=== PATIENT | female | born 1995 | race Caucasian/White ===

== ENCOUNTER 2024-09-22 12:26 | Emergency (ER) | payer MEDICAID ==
[~2024-09-22] VITALS: Ht 167.6 cm; Wt 68.0 kg
[2024-09-22 12:33] VITALS: O2SAT 99
[2024-09-22] MEDS: IBUPROFEN 600MG TABLET PO ONE (13:49)
[2024-09-22] MEDS ORDERED: NAPR-1129 MT (13:56)
[2024-09-22 14:10] VITALS: BP 119/71; PULSE 74; RESP 18; TEMP 36.94740; O2SAT 99
== END 2024-09-22 14:14 | disposition home or self-care (01) ==
LOC: ER 12:35
DX: K08.89 Other specified disorders of teeth and supporting structures (principal); R51.9 Headache, unspecified
CPT/HCPCS: 81025; 99283